=== PATIENT | female | born 1990 | race Caucasian/White ===

== ENCOUNTER 2020-03-31 19:21 | Emergency (ER) | payer OTHER ==
[~2020-03-31] VITALS: Ht 165.1 cm; Wt 80.7 kg
[2020-03-31 19:25] VITALS: BP 143/80
--- NOTE | 2020-03-31 19:28 | NUR ---
PT AMBULATED TO BED 04 WITH STEADY GAIT.
--- NOTE | 2020-03-31 19:42 | NUR ---
29 Y/O FEMALE C/O NAUSEA/VOMITING SINCE LAST WEEK WITH FEELINGS OF WEAKNESS. DENIES ANY PAIN DIARRHEA/CONSTIPATION. PT STATES SHE TOOK A TEST YESTERDAY, RESULTED NEGATIVE. ABD SOFT, NON TENDER. MEDHX: DENIES NKA
--- NOTE | 2020-03-31 19:54 | NUR ---
PA AT BEDSIDE EVALUATING PT
[2020-03-31] MEDS ORDERED: ONDANSETRON 4 MG/2 ML VIAL IVP ONE (20:00)
[2020-03-31] MEDS ORDERED: NACL 0.9% 1,000 ML IV ONE (20:00)
--- NOTE | 2020-03-31 21:34 | NUR ---
Dr. Bardales examining patient.
--- NOTE | 2020-03-31 21:46 | NUR ---
LAB AT BEDSIDE.
[2020-03-31 21:53] LABS: BASOPHILS # (AUTO) 0.1 K/uL (0.00-0.22); EOSINOPHILS # (AUTO) 0.1 K/uL (0-0.4); EOSINOPHILS % (AUTO) 1.1 % (0.0-4.0); HEMATOCRIT 39.9 % (36-48); HEMOGLOBIN 13.5 g/dL (12.0-16.0); LYMPHOCYTES # (AUTO) 3.1 K/uL (2.5-16.5); LYMPHOCYTES % (AUTO) 35.3 % (20.5-51.1); MEAN CORPUSCULAR HEMOGLOBIN 30 pg (27-31); MEAN CORPUSCULAR HGB CONC 34 g/dL (33-37); MEAN CORPUSCULAR VOLUME 87.3 fL (80-94); MONOCYTES # (AUTO) 0.6 K/uL (0.8-1.0); MONOCYTES % (AUTO) 6.6 % (1.7-9.3); NEUTROPHILS # (AUTO) 4.9 K/uL (1.8-7.7); PLATELET COUNT (AUTO) 260 K/uL (140-450); RED BLOOD CELL COUNT(AUTO) 4.57 MIL/uL (4.20-5.40); RED CELL DISTRIBUTION WIDTH 13.2 % (11.6-13.7); WHITE BLOOD COUNT (AUTO) 8.8 K/uL (4.8-10.8)
[2020-03-31 22:13] LABS: ALBUMIN 3.9 g/dL (3.4-5.0); ANION GAP 16.5 (8-16); CREATININE 0.8 mg/dL (0.6-1.3); POTASSIUM 3.5 mmol/L (3.5-5.1); TOTAL BILIRUBIN 0.3 mg/dL (0.0-1.0)
--- NOTE | 2020-03-31 22:31 | NUR ---
COVID SWAB DONE AND SENT TO LAB
[2020-03-31 22:37] VITALS: BP 143/80
--- NOTE | 2020-03-31 22:37 | NUR ---
Patient discharged with v/s stable. Written and verbal after care instructions given and explained. Patient alert, oriented and verbalized understanding of instructions. Ambulatory with steady gait. All questions addressed prior to discharge. ID band removed. IV Discontinued. Patient advised to follow up with PMD. Rx of ZOFRAN given. Patient educated on indication of medication including possible reaction and side effects. Opportunity to ask questions provided and answered.
== END 2020-03-31 22:37 | disposition home or self-care (01) ==
LOC: MED 19:21
DX: R11.2 Nausea with vomiting, unspecified (principal); Z20.828 Contact with and (suspected) exposure to other viral communicable diseases
CPT/HCPCS: 36415; 80053; 81002; 81025; 85025; 96361; 96374; 99283; J2405; J7030; U0003